=== PATIENT | male | born 1990 | race Asian ===

== ENCOUNTER 2024-06-14 07:58 | Emergency (ER) | payer BC ==
[~2024-06-14] VITALS: Ht 162.6 cm; Wt 61.7 kg
[2024-06-14 08:02] VITALS: BP 154/109; TEMP 98.3
[2024-06-14] MEDS ORDERED: IBUP-1957 PO (08:19)
[2024-06-14 08:38] VITALS: O2SAT 99
== END 2024-06-14 08:38 | disposition home or self-care (01) ==
LOC: ER 08:03
DX: R10.9 Unspecified abdominal pain (principal); M79.651 Pain in right thigh; J45.909 Unspecified asthma, uncomplicated; Z79.1 Long term (current) use of non-steroidal anti-inflammatories (NSAID); Z88.1 Allergy status to other antibiotic agents